=== PATIENT | female | born 1995 | race Caucasian/White ===

== ENCOUNTER 2019-03-25 16:25 | Emergency (ER) | payer OTHER ==
[~2019-03-25] VITALS: Ht 162.6 cm; Wt 54.4 kg
[2019-03-25] MEDS ORDERED: PRENATAL 19 TA1 EACH (16:33)
== END 2019-03-25 19:58 | disposition home or self-care (01) ==
LOC: ER 16:25
DX: O26.892 Other specified pregnancy related conditions, second trimester (principal); K59.09 Other constipation; Z34.02 Encounter for supervision of normal first pregnancy, second trimester

== ENCOUNTER → 2019-04-08 | Outpatient (CLI) | payer OTHER ==
[~2019-04-08] MED LIST: PRENATAL 19 TA1 EACH; PRENATAL ONE D1 EACH PO
== END | disposition home or self-care (01) ==
LOC: PRENATAL 10:10
DX: O28.1 Abnormal biochemical finding on antenatal screening of mother (principal); O35.3XX0 Maternal care for (suspected) damage to fetus from viral disease in mother, not applicable or unspecified

== ENCOUNTER 2019-04-12 16:43 | Emergency (ER) | payer OTHER ==
[~2019-04-12] VITALS: Ht 162.6 cm; Wt 54.9 kg
[~2019-04-12 16:43] MED LIST changes: -PRENATAL ONE D1 EACH PO
== END 2019-04-12 20:22 | disposition home or self-care (01) ==
LOC: ER 16:43
DX: O26.892 Other specified pregnancy related conditions, second trimester (principal); S20.212A Contusion of left front wall of thorax, initial encounter; V49.9XXA Car occupant (driver) (passenger) injured in unspecified traffic accident, initial encounter; Y93.89 Activity, other specified; Y92.488 Other paved roadways as the place of occurrence of the external cause; Y99.8 Other external cause status; Z34.02 Encounter for supervision of normal first pregnancy, second trimester

== ENCOUNTER 2019-05-24 11:07 | Emergency (ER) | payer OTHER ==
[~2019-05-24] VITALS: Ht 162.6 cm; Wt 54.4 kg
[2019-05-24] MEDS ORDERED: PRENATAL ONE D1 EACH PO (11:41)
== END 2019-05-24 18:20 | disposition home or self-care (01) ==
LOC: ER 11:07
DX: O26.892 Other specified pregnancy related conditions, second trimester (principal); K52.89 Other specified noninfective gastroenteritis and colitis; Z34.82 Encounter for supervision of other normal pregnancy, second trimester

== ENCOUNTER 2019-08-12 22:08 | Outpatient (CLI) | payer OTHER ==
[~2019-08-12 22:08] MED LIST changes: +PRENATAL ONE D1 EACH PO
== END 2019-08-13 13:51 | disposition designated cancer center or children's hospital (05) ==
LOC: OBS/DEL 22:08
DX: O26.893 Other specified pregnancy related conditions, third trimester (principal); Z04.3 Encounter for examination and observation following other accident; W18.09XA Striking against other object with subsequent fall, initial encounter; Y93.89 Activity, other specified; Y92.89 Other specified places as the place of occurrence of the external cause; Y99.8 Other external cause status

== ENCOUNTER 2019-08-13 14:14 | Emergency (ER) | payer OTHER ==
[~2019-08-13] VITALS: Ht 162.6 cm; Wt 68.0 kg
== END 2019-08-13 18:30 | disposition home or self-care (01) ==
LOC: ER 14:14
DX: O26.893 Other specified pregnancy related conditions, third trimester (principal); S82.842A Displaced bimalleolar fracture of left lower leg, initial encounter for closed fracture; W18.09XA Striking against other object with subsequent fall, initial encounter; Y93.89 Activity, other specified; Y92.018 Other place in single-family (private) house as the place of occurrence of the external cause; Y99.8 Other external cause status; Z34.03 Encounter for supervision of normal first pregnancy, third trimester

== ENCOUNTER 2021-12-07 09:19 | Emergency (ER) | payer OTHER ==
[~2021-12-07] VITALS: Ht 162.6 cm; Wt 46.7 kg
== END 2021-12-07 16:13 | disposition home or self-care (01) ==
LOC: ER 09:19
DX: A08.4 Viral intestinal infection, unspecified (principal)

== ENCOUNTER 2024-03-14 09:27 | Emergency (ER) | payer OTHER ==
[~2024-03-14] VITALS: Ht 162.6 cm; Wt 49.9 kg
[2024-03-14] MEDS ORDERED: CEFTRIAXONE SODIUM 1,000 MG VIAL IM ONE (10:15)
[2024-03-14] MEDS ORDERED: BENZONATATE 200 MG CAPSULE PO ONE (10:15)
[2024-03-14] MEDS ORDERED: GUAIFENESIN 100 MG/5 ML BLIST.PACK PO ONE (10:15)
[2024-03-14 10:38] LABS: HEMATOCRIT 40.8 % (36.0-45.00); HEMOGLOBIN 13.7 g/dL (12.0-15.00); MEAN CORPUSCULAR HEMOGLOBIN 32.4 pg (27.00-32.0); MEAN CORPUSCULAR HGB CONC 33.4 g/dl (32.0-36.0); PLATELET COUNT 171 K/uL (150-450); RED BLOOD COUNT 4.21 M/uL (4.00-6.00); RED CELL DISTRIBUTION WIDTH 13.1 % (11.5-14.5)
[2024-03-14] MEDS ORDERED: AUGMENTIN XR 11 EACH PO (11:56)
[2024-03-14] MEDS ORDERED: PEPCID AC20 MG PO (11:56)
== END 2024-03-14 12:32 | disposition home or self-care (01) ==
LOC: ER 09:28
PROVIDERS: General Practice
DX: J00 Acute nasopharyngitis [common cold] (principal); Z20.822 Contact with and (suspected) exposure to COVID-19